=== PATIENT | male | born 1950 | race Caucasian/White ===

== ENCOUNTER 2016-10-31 05:29 | Observation (INO) | payer MEDICARE, BC ==
--- NOTE | ~2016-10-31 | CT4 ---
[facility] A Service of [facility] & [facility] RADIOLOGY TEXT RESULTS PATIENT: CARLOS BARNETT LOCATION: CED[facility] 34404-11 : [birth year] UNIT #: [id number] AGE: [address]: LULU MARIE MD SEX: M ORDER DR: [id number] [facility] [address] [place], [place] [address] [id number] I MR#: [id number] Acc #: [id number] NAME: CARLOS BARNETT. : 1950 SEX: M STUDY DATE/TIME: 10/31/2016 5:43 UNIT: CEDOF ROOM: 70502 STUDY DESCRIPTION: CT Abd and Pelv Wo Cont Attending Physician: Lulu Marie M.D. Ordering Physician: Santosh Barreto, [id number] Primary Care Physician: Damien Munguia.P.RTrangNTrang MEDICAL IMAGING REPORT This report is preliminary unless electronic signature is present EXAM CT abdomen and pelvis without contrast. 10/31/[address] dated 09/23/2016 HISTORY Low pelvic and penile pain since 0230 a.m. Dizziness and difficulty urinating. This CT exam was performed with one or more of the following radiation dose reduction techniques: automatic exposure control, adjustment of mA and/or kV according to patient size, and iterative reconstruction. FINDINGS Redemonstrated multiple nodules at both lung bases, not substantially changed since the prior exam. Abdomen: The gallbladder has been removed and unenhanced images of the liver are normal. The spleen and pancreas are unremarkable as well. There is slight prominence of the renal collecting systems and upper ureters bilaterally, but no calcification or adilene hydronephrosis. There is no bowel obstruction and the aorta is normal in caliber. There is no inflammatory change or mass. Pelvis: There is distention of the urinary bladder. There is no pelvic mass or adenopathy. There is diverticulosis but no evidence of diverticulitis. The appendix is not identified but there is no evidence to suggest appendicitis or any other acute inflammatory process. There is spinal degenerative change but no acute appearing bony abnormality. There is marked distention of the urinary bladder which rises [facility] A Service of [facility] & [facility] RADIOLOGY TEXT RESULTS PATIENT: CARLOS BARNETT LOCATION: [facility] [address]-62 : [birth year] UNIT #: [id number] AGE: [address]: LULU MARIE MD SEX: M ORDER DR: well out of the pelvis. IMPRESSION 1. Distended urinary bladder without stone or mass. 2. Diverticulosis without diverticulitis. 3. Spinal degenerative change without acute appearing bony abnormality. 4. Multiple metastatic nodules at the lung bases. 5. There is a soft tissue mass deep in the right gluteal fat about 2 cm in size. Etiology uncertain. It was probably present on the study of 09/20/2016 and only partially seen. Presumably this is related to metastatic disease or conceivably could represent an epidermal inclusion cyst. Dictated by... Mata Beyer M.D. THIS IS AN ELECTRONICALLY VERIFIED REPORT Mata Beyer M.D. at 10/31/2016 1:48 PM KRISTIN/dave TD: 10/31/2016 13:18 JOB #: [id number] MEDICAL IMAGING REPORT Page 1 of 1 COPY
--- NOTE | ~2016-10-31 | MR133 ---
[facility] A Service of [facility] & [facility] RADIOLOGY TEXT RESULTS PATIENT: CARLOS BARNETT LOCATION: [facility] 325-01 : 49 UNIT #: [id number] AGE: [address]: LULU MARIE MD SEX: M ORDER DR: [id number] [facility] [address] [place], [place] [address] [id number] I MR#: [id number] Acc #: [id number] NAME: CARLOS BARNETT : 1950 SEX: M STUDY DATE/TIME: 10/31/2016 17:29 UNIT: [address] ROOM: [facility] STUDY DESCRIPTION: MR MRA Neck WWo Contrast Attending Physician: Lulu Marie M.D. Ordering Physician: Maximino Mckenzie M.D. Primary Care Physician: Alex MunguiaRDevorah [facility] CENTER REPORT This report is preliminary unless electronic signature is present. EXAM MR angiogram of the neck with-without HISTORY Pain and dizziness, dizziness onset at 3 a.m., improved. COMMENT MR angiography neck vessels performed prior to and during the intravenous administration of 20 mL of MultiHance. There is no prior study of the neck vasculature. Aortic arch branch pattern shows bovine origin left common carotid artery. There is 0% stenosis at either carotid bifurcation by NASCET criteria. Both vertebral arteries are patent, fairly codominant and there is some mild tortuosity at the proximal left vertebral artery. IMPRESSION 1. By NASCET criteria, 0% stenosis at either carotid bifurcation. Both vertebral arteries patent, fairly codominant. STAT * RESULT Dictated by... Jessie Stout M.D. THIS IS AN ELECTRONICALLY VERIFIED REPORT Jessie Stout M.D. at 10/31/2016 7:34 PM SAC/psc TD: 10/31/2016 18:40 JOB #: [id number] [facility] A Service of [facility] & [facility] RADIOLOGY TEXT RESULTS PATIENT: CARLOS BARNETT LOCATION: [facility] 325-01 : [birth year] UNIT #: [id number] AGE: [address]: LULU MARIE MD SEX: M ORDER DR: MRI CENTER REPORT Page 1 of 1 COPY
--- NOTE | ~2016-10-31 | DS ---
Unit #: [id number] #: [id number] Patient: CARLOS BARNETT [id number] [address] [address] [id number] I MR#: [id number] NAME: CARLOS BARNETT. ROOM: 325 Age: 66 Sex: M Admission Date: 10/31/2016 : 1950 Discharge Date: 11/01/2016 Attending Physician: Nancie Hampton M.D. Primary Care Physician: Rebecca Liz A.P.R.N. DISCHARGE SUMMARY REASON FOR ADMISSION Dizziness. HISTORY OF PRESENT ILLNESS/HOSPITAL COURSE Please see H and P for complete details. Essentially, the patient was admitted and placed on telemetry floor. MRI/MRA was performed of the brain. Neurology consultation was obtained. Studies returned back to normal. There was no acute metastatic disease nor recent ischemic insult which was noted. CT of the abdomen and pelvis was performed secondary to mild abdominal discomfort as well as lower pelvic pressure, that study too was negative. CT head had been performed in the ER, which was unremarkable. Laboratory studies at time of discharge yield a hemoglobin of 14.1, white count 7.2. BMP is relatively unremarkable. The patient appears stable and improved. His dizziness has now resolved and he is cleared for discharge home. He will follow up with Rebecca Liz, nurse-practitioner, [facility] for ongoing management of his blood pressure. While he was here, his blood pressure remains elevated; however, he states while at home or even at his primary care physician's office, his blood pressure remained fairly stable. Therefore, no further adjustments will be made to his blood pressure regimen. FINAL DISCHARGE DIAGNOSES 1. Dizziness on admission likely secondary to inner ear/viral labyrinthitis. 2. Metastatic chondrosarcoma. 3. Hypertension. 4. Hypothyroidism. 5. Gastroesophageal reflux disease. 6. Gout. 7. Allergies. 8. Pulmonary embolism and deep venous thrombosis, on chronic anticoagulation. 9. Depression. 10. Obstructive sleep apnea. 11. Osteoarthritis. 12. History of amputation. FINAL DISCHARGE MEDICATIONS Coumadin 5 mg p.o. daily, note INR in this hospital admission 2.6; Lyrica 75 mg p.o. t.i.d.; meclizine 12.5 mg p.o. q.8 p.r.n. #10 prescription given; Tylenol 650 mg p.o. q.6 p.r.n.; Coreg CR 40 mg p.o. daily; Diovan Unit #: [id number] #: [id number] Patient: CARLOS BARNETT 10/320 one tablet p.o. daily; chlorthalidone 25 mg p.o. every other day; eye drops as directed; hydralazine 50 mg p.o. q.8; ferrous sulfate 324 mg p.o. daily; Zantac 150 mg p.o. b.i.d.; allopurinol 50 mg p.o. b.i.d.; colchicine 0.6 mg p.o. q.h.s.; multivitamin daily; Endocet 5/325 one tablet p.o. q.8 p.r.n.; Prevacid 15 mg p.o. daily; Xyzal 5 mg p.o. daily; Flexeril 10 mg p.o. q.h.s.; Synthroid 200 mcg p.o. daily. DISCHARGE CONDITION Stable. DISCHARGE DISPOSITION Home. FOLLOWUP Rebecca Liz [facility] in 7 to 10 days. Dictated by... Casi Lopez/sherri TD: 11/02/2016 02:40 JOB #: [id number] DISCHARGE SUMMARY Page 1 of 1 X Nancie Hampton MD X DISCHARGE SUMMARY
--- NOTE | ~2016-10-31 | CT71 ---
[facility] A Service of [facility] RADIOLOGY TEXT RESULTS PATIENT: CARLOS BARNETT LOCATION: [facility] 325-01 : [birth year] UNIT #: [id number] AGE: [address]: LULU MARIE MD SEX: M ORDER DR: [id number] [id number] [place], [place] [address] [id number] I MR#: [id number] Acc #: [id number] NAME: CARLOS BARNETT. : 1950 SEX: M STUDY DATE/TIME: 10/31/2016 7:50 UNIT: CEDOF ROOM: 11549 STUDY DESCRIPTION: CT Head Wo Contrast Attending Physician: Lulu Marie M.D. Ordering Physician: Santosh Alvarez M.D. Primary Care Physician: Damien Munguia.P.RTrangNTrang MEDICAL IMAGING REPORT This report is preliminary unless electronic signature is present EXAM CT of the head without contrast INDICATION Dizziness since this morning. TECHNIQUE Axial CT images were obtained from the vertex of the skull through the skull base. No intravenous contrast was administered. This CT exam was performed with one or more of the following radiation dose reduction techniques: automatic exposure control, adjustment of mA and/or kV according to patient size, and iterative reconstruction. FINDINGS No acute intracranial hemorrhage is identified. Patient does have some atrophy with some associated ventricular dilatation, although not significantly changed when compared to February 2008. There is no midline shift or mass effect. I do not see any focal areas of decreased attenuation. A mucous retention cyst is seen within the left maxillary sinus. There is some mild mucosal thickening seen within the right maxillary sinus. There are no focal soft tissue abnormalities. IMPRESSION No acute intracranial process is identified. Specifically, there is no evidence of acute hemorrhage, mass lesion or acute infarct. Patient does have some mild atrophy probably not significantly changed when compared to the February 2008 exam. Dictated by... Archana Zhong M.D. THIS IS AN ELECTRONICALLY VERIFIED REPORT [facility] A Service of [facility] RADIOLOGY TEXT RESULTS PATIENT: CARLOS BARNETT LOCATION: [facility] 325-01 : [birth year] UNIT #: [id number] AGE: [address]: LULU MARIE MD SEX: M ORDER DR: Archana Zhong M.D. at 10/31/2016 5:55 PM AFF/dorota TD: 10/31/2016 13:33 JOB #: [id number] MEDICAL IMAGING REPORT Page 1 of 1 COPY
--- NOTE | ~2016-10-31 | CO ---
Unit #: [id number] #: [id number] Patient: CARLOS BARNETT [id number] [facility] [address] [place], [place] [address] [id number] I MR#: [id number] NAME: CARLOS BARNETT. ROOM: 325 Age: 66 Sex: M Admission Date: 10/31/2016 : 1950 Attending Physician: Torey Marie M.D. Primary Care Physician: Rebecca Liz A.P.R.N. Consultation Date: 10/31/2016 CONSULTATION REPORT PRIMARY CARE PHYSICIAN Dr. Rebecca Liz. CONSULTING PHYSICIAN Dr. Torey Marie. REASON FOR CONSULT Dizziness, rule out BPPV. PATIENT IDENTIFICATION This is a 66-year-old right-handed male, evaluated in the ER room 10 at [facility]. SOURCE OF INFORMATION Obtained from the patient as well as the patient's at the bedside as well as medical record. HISTORY OF PRESENT ILLNESS This is a 66-year-old, right-handed, male with past medical history of chondrosarcoma with lung metastasis, pulmonary embolism about 3 years ago, on anticoagulation with therapeutic INR of 2.9, hypertension, GERD, hypothyroidism, who presented to [facility] with complaints of new-onset vertigo, and "fullness" in the abdomen. The patient states he was in his usual state of health yesterday. He was just recently discharged from this facility about a month ago for treatment of acute diverticulitis. He states that he stays fatigued, but has not had any acute problems in the last few days or new symptoms. He states he went to bed around 11:00 p.m. last night and woke up to go to the bathroom around 2:00 or 2:30. He states that whenever he tried to get up, he felt "very dizzy." He states that he felt as though he was spinning and that the room was spinning. He complains of associated nausea, but no vomiting. He states that his symptoms are so severe that he was unable to ambulate. Thus, his decided that he should come to the hospital for further evaluation. In the ER, he had a CT scan done that was negative for any acute intracranial abnormality. His glucose was 142. His troponin was less than 0.05. His CBC was unremarkable other than RDW of 18.6. His urinalysis was unremarkable and his PT and INR were 31.3 and 2.9 respectively. He was noted to have a low potassium of 2.6 and does have chronic hypokalemia. His chloride was 94. Otherwise, the remainder of his BMP with liver was unremarkable other than a mildly elevated glucose of 134. He states that the medicine he received in the ED significantly helped his symptoms. He received a dose of Zofran via EMS prior to arrival. In the ER, he received morphine 4 mg IV, Antivert 25 mg p.o., Decadron 10 mg IV, Klonopin 1 mg p.o., and another dose of Zofran 4 Unit #: [id number] #: [id number] Patient: CARLOS BARNETT E mg IV as well as a normal saline bolus and some potassium chloride 40 mEq p.o. The patient states he is feeling better, but states that he has not gotten up and has felt too unsteady. He states that lying still help his symptoms to be relieved. He denies any focal weakness or paresthesia, shortness of air, chest pain, speech or swallowing changes, or vision changes. He does complain of chronic lower extremity difficulty. He has bnoxq-zre-ycpd amputation of the right lower extremity and has ankle problems specifically pain in the left lower extremity. He states that he has to use a cane or walker many times to ambulate even with this prosthesis in place. He denies any shortness of air, palpitations, any recent fever or chills, change in weight or routine. Full detailed review of systems was done. PAST MEDICAL HISTORY 1. Chondrosarcoma diagnosed in 1998 followed by Oncology at [place] as well as Dr. Newby at [facility]. 2. Hypertension. 3. Hypothyroidism. 4. GERD. 5. Gout. 6. Allergies. 7. PE approximately 3 years ago. He is maintained on warfarin therapy. His INR is therapeutic on arrival. 8. Depression. 9. Obstructive sleep apnea, on CPAP. 10. Osteoarthritis. 11. Right iufuf-hrv-pddf amputation in 1998. He states was secondary to "cancer.". 12. Cholecystectomy. 13. Removal of T3 vertebrae secondary to cancer. 14. Multiple spine surgeries for removal of tumors. 15. Left shoulder tumor removal. ALLERGIES No known drug allergies. FAMILY HISTORY Family history of melanoma in his mother and myocardial infarction in his father. SOCIAL HISTORY He denies any history of tobacco use or illicit drug use and drinks alcohol only socially on occasion. REVIEW OF SYSTEMS 14-point review of systems was done and pertinent positives are as discussed above, otherwise negative. He does complain of fullness in his abdomen as described above that is being worked up by the admitting physician. HOME MEDICATIONS As per medication reconciliation form include Coreg CR, amlodipine/valsartan 10/320, Prevacid, Levoxyl, levocetirizine dihydrochloride, Lyrica, hydralazine, Flexeril, Zantac, chlorthalidone, warfarin, ferrous sulfate, Votrient, colchicine, allopurinol, mupirocin topically, oxycodone and acetaminophen, multivitamin, azelastine, clotrimazole and betamethasone cream topically for itching, Bactroban topically, iron and calcium tablets. Unit #: [id number] #: [id number] Patient: CARLOS BARNETT PHYSICAL EXAMINATION VITAL SIGNS: Temperature 98.3, he has been afebrile; pulse 90; respirations 20; blood pressure 149/100, blood pressure in the ER on arrival 164/115; oxygen saturation 95%; height 6 feet 3 inches; weight 249 pounds; BMI 31. NEUROLOGIC: He is awake, alert, and oriented to person, place, and time as well as events. No right or left confusion. No finger agnosia. No aphasia, dysarthria, or apraxia. Cranial nerve exam demonstrates full bingham of vision. Eyes are conjugate without ptosis or nystagmus. Extraocular movements are intact. No gaze palsy seen. Sensation of face and scalp is intact. Strength of muscles of facial expression is intact. Hearing is intact to conversation. Tongue is midline. Unable to visualize uvula and palate. Head turning and shoulder shrugs are unremarkable. Neck is supple. Motor exam, he demonstrates normal bulk and tone. Strength is equal 5/5 in the upper extremities. He has intact strength of the left lower extremity, but some pain in the knee and ankle limiting evaluation. He has a hsogm-rsn-jzfu amputation on the right lower extremities, thus limiting exam and proximally appears to be intact. Sensory exam intact to soft touch and pinprick. Gait and Romberg deferred. Reflexes, unable to elicit. Toes are equivocal on the left. Coordination, no past-pointing. No ataxia seen with Wilton-Hallpike and it appears to be negative on the right. On the left, he does complain of vertigo, but no nystagmus appreciated. DIAGNOSTIC STUDIES IMAGING STUDIES: Please see above. LABORATORY RESULTS: Please see above. IMPRESSION 1. Vertigo, significantly improved with medications received in the ED. Eugenio-Hallpike positive for vertigo on the left, but no nystagmus. We will ask PT/OT to evaluate. Nothing at this time to suggest an ischemic stroke. We will request an MRI of the brain given his history and risk factors and presentation request without and with gadolinium. 2. Nausea secondary to vertigo. 3. Hypokalemia. 4. Chondrosarcoma with lung metastasis. 5. History of pulmonary embolism in the remote past. He is maintained on warfarin with INR of 2.9 today on arrival. PLAN Please see orders. We will ask PT/OT to evaluate. He has improved with medications. We will continue low dose of meclizine t.i.d. and request an MRI of the brain, MRI of the head and neck. Further recommendations pending workup and further clinical course. The patient's ability to ambulate at his baseline after PT/OT evaluation. Please call for any questions or issues. Case was discussed with Dr. Mckenzie and he agrees with above. Dictated by... Kristin JulioPTrangRTrangN. for Casi Toribio/sherri TD: 11/01/2016 04:27 Unit #: [id number] #: [id number] Patient: CARLOS BARNETT JOB #: [id number] CONSULTATION REPORT Page 1 of 1 X Lacie Hunter APRN X CONSULTATION REPORT
--- NOTE | ~2016-10-31 | HP ---
Unit #: [id number] #: [id number] Patient: CARLOS BARNETT [id number] [address] [place], [place] [address] [id number] MR#: [id number] NAME: CARLOS BARNETT ROOM: Age: 66 Sex: M Admission Date: 10/31/2016 : 1950 Attending Physician: Santosh Alvarez M.D. Primary Care Physician: Rebecca Liz A.P.R.N. HISTORY AND PHYSICAL CHIEF COMPLAINT Dizziness. HISTORY OF PRESENT ILLNESS The patient is a 66-year-old male with an extensive past medical history including chondrosarcoma with mets to the lungs, presented to the emergency room complaining of dizziness that started earlier this morning. The patient stressed that his dizziness is spinning the room, when he tries to get up from lying position. The patient also complains of the nausea and vomiting associated with the dizziness. The patient also complained of fullness in the lower abdomen. The patient was recently discharged from the hospital a month ago with diverticulitis. The patient had a CT of the head and the abdomen with no acute findings. The patient was found to have a potassium of 2.6 and was found to have a (1) during the EMS transport. Denies any fever or chills, chest pain or palpitations. The patient follows with the [facility] every three months and the next schedule is on 11/13/2016. PAST MEDICAL HISTORY 1. History of chondrosarcoma diagnosed in 1998, followed by oncologist at [place], in addition to Dr. Newby at [facility]. 2. Hypertension. 3. Hypothyroidism. 4. Gastroesophageal reflux disease. 5. Gout. 6. Allergies. 7. History of PE approximately 3 years ago maintained on warfarin therapy. 8. Depression. 9. Obstructive sleep apnea on CPAP. 10. Osteoarthritis. PAST SURGICAL HISTORY 1. Status post right below the knee amputation. 2. Cholecystectomy. 3. Removal of T3 vertebra secondary to cancer. 4. Multiple spine surgeries for removal of tumors. 5. Multiple right leg and groin lymph node removal. 6. Removal of tumor from left shoulder. HOME MEDICATIONS Coreg, Exforge, Prevacid, levothyroxine, Colace, Xyzal, Lyrica, hydralazine, furosemide, Flexeril, loratadine, chlorthalidone, ferrous sulfate, Votrient, colchicine, allopurinol, mupirocin, clotrimazole, and Percocet. Unit #: [id number] #: [id number] Patient: CARLOS BARNETT ALLERGIES No known drug allergies. SOCIAL HISTORY The patient has never smoked and drinks alcohol only socially. FAMILY HISTORY Significant for melanoma in patient's mother in addition to diverticulosis and hypertension. REVIEW OF SYSTEMS Fourteen point review of systems was performed and only pertinent positive findings as described above. The remaining are negative. PHYSICAL EXAMINATION GENERAL: The patient is lying on the bed not in acute distress. VITALS: Temperature afebrile, pulse 90, respiratory rate 15, blood pressure 164/115, satting 98% at room air. HEENT: Head atraumatic, normocephalic. Pupils equal, round and reactive to light and accommodation. Extraocular movements are intact. Dry mucous membrane. NECK: Supple. No JVD. LUNGS: Clear to auscultation bilaterally. No rhonchi. No wheezing. HEART: Regular rate and rhythm. ABDOMEN: Soft. Positive bowel sounds. Discomfort at the lower abdomen. EXTREMITIES: No cyanosis and no clubbing, status post right below the knee amputation. NEUROLOGIC: Alert, awake and oriented. No gross focal motor deficit. Positive for dizziness. PSYCHIATRIC: Alert and awake. No suicidal or homicidal ideation. DIAGNOSTIC STUDIES LABORATORY DATA: Glucose 134, BUN 11, creatinine 0.8, sodium 136, potassium 2.6, chloride 94, bicarb 24, calcium 9.9, total protein 7.9, albumin 4.6, AST 38, ALT 35, alk phos 83. INR is 2.9. Troponin less than 0.05. WBC 7.5, hemoglobin 15.2, hematocrit 43.7, platelets 343 and UA is negative. IMAGING STUDIES: CT of the head is negative. CT of the abdomen and pelvis shows diverticulosis with diverticulitis and distended gallbladder. ASSESSMENT 1. Dizziness. 2. Rule out the benign BPPV. 3. Hypokalemia. 4. Nausea and vomiting. 5. Chondrosarcoma with mets to the lungs on oral chemotherapy. PLAN Plan to admit the patient to the observation to telemetry and continue with gentle IV fluids, normal saline 75 mL per hour for 10 hours. Replace the potassium per protocol and the patient had an EKG that showed a normal sinus rhythm at a rate of 98 BPM, QTC of 515 and LA interval of 200. Patient will have a neurology evaluation for dizziness to rule out BPPV and repeat the labs again in the morning and further recommendations will Unit #: [id number] #: [id number] Patient: CARLOS BARNETT follow as more lab results are available. Continue with the Zofran for the nausea and vomiting. Dictated by Casi Sierra/gina TD: 10/31/2016 12:25 JOB #: [id number] HISTORY AND PHYSICAL Page 1 of 1 X X HISTORY AND PHYSICAL
--- NOTE | ~2016-10-31 | EKG ---
PATIENT: CARLOS BARNETT UNIT #: [id number] Ventricular Rate: 88 BPM Atrial Rate: 88 BPM P-R Interval: 200 ms QRS Duration: 102 ms Q-T Interval: 426 ms QTC Calculation(Bezet): 515 ms P Beach: 72 degrees Calculated R Beach: -22 degrees Calculated T Beach: 7 degrees Diagnosis Line: Normal sinus rhythm Diagnosis Line: Nonspecific ST abnormality Diagnosis Line: Prolonged QT Diagnosis Line: Abnormal ECG Diagnosis Line: No previous ECGs available Diagnosis Line: Confirmed by MALIKA SEGOVIA MD ([id number]) on Diagnosis Line: 10/31/2016 2:27:40 PM INTERPRETING MD: JULIETTE GONZALEZ
--- NOTE | ~2016-10-31 | MR17 ---
[facility] A Service of [facility] & [facility] RADIOLOGY TEXT RESULTS PATIENT: CARLOS BARNETT LOCATION: [facility] 325- : [birth year] UNIT #: [id number] AGE: [address]: Nancie Hampton MD SEX: M ORDER DR: [id number] [facility] [address] [place], [place] [address] [id number] I MR#: [id number] Acc #: [id number] NAME: CARLOS BARNETT. : 1950 SEX: M STUDY DATE/TIME: 10/31/2016 17:29 [facility] ROOM: 325 STUDY DESCRIPTION: MR Brain WWo Contrast Attending Physician: Nancie Hampton M.D. Ordering Physician: Maximino Mckenzie M.D. Primary Care Physician: Rebecca Liz A.P.R.N. MRI CENTER REPORT This report is preliminary unless electronic signature is present. EXAM MRI brain with and without contrast HISTORY Vertigo, dizziness, onset 03:00 a.m. 10/31/2016 improved. History of bone cancer per patient not otherwise specified. COMMENT MRI of the brain was performed prior to and following the intravenous administration of 20 mL of MultiHance. There is a head CT from earlier today. There is no abnormally restricted diffusion. No recent ischemic insult is suspected. No Chiari-I malformation. Chronic malacic area at the superior medial right cerebellar hemisphere into the vermis consistent with an old insult. There is no extraaxial fluid collection. Mild generalized atrophy and prominence of perivascular spaces. Also mild white matter signal abnormality nonspecific probably due to small vessel disease. Major intracranial flow voids are maintained. Minimal fluid or inflammatory change mastoid tips. Mucous retention cyst or polyp in the left maxillary sinus. No MRI evidence for intracranial hemorrhage. No intracranial mass effect. Following contrast administration, there is no pathologic intracranial enhancement. No intracranial mass lesion. IMPRESSION 1. No evidence for a recent ischemic insult on the diffusion series. 2. There is a old malacic lesion to the superior medial right cerebellar hemisphere into the vermis. Etiology of this old insult not determined on this study. Please correlate further clinically. 3. Mild generalized atrophy and mild probable sequelae of small vessel disease. No intracranial mass effect. Dictated by... Jessie Stout M.D. [facility] A Service of [facility] RADIOLOGY TEXT RESULTS PATIENT: CARLOS BARNETT LOCATION: [place] [address] : [birth year] UNIT #: [id number] AGE: [address]: Nancie Hampton MD SEX: M ORDER DR: THIS IS AN ELECTRONICALLY VERIFIED REPORT Jessie Stout M.D. at 11/01/2016 10:20 AM JAMES/roseline TD: 11/01/2016 10:12 JOB #: [id number] MRI CENTER REPORT Page 1 of 1 COPY
--- NOTE | ~2016-10-31 | MR122 ---
[facility] A Service of [facility] & [facility] RADIOLOGY TEXT RESULTS PATIENT: CARLOS BARNETT LOCATION: [facility] 325-01 : [birth year] UNIT #: [id number] AGE: [address]: LULU MARIE MD SEX: M ORDER DR: [id number] [facility] [address] [place], [place] [address] [id number] I MR#: [id number] Acc #: [id number] NAME: CARLOS BARNETT : 1950 SEX: M STUDY DATE/TIME: 10/31/2016 17:29 UNIT: [address] ROOM: [facility] STUDY DESCRIPTION: MR MRA Head Wo Contrast Attending Physician: Lulu Marie M.D. Ordering Physician: Maximino Mckenzie M.D. Primary Care Physician: Damien Munguia.P.RDevorah MRI CENTER REPORT This report is preliminary unless electronic signature is present. EXAM MR angiogram [facility] vasculature. HISTORY Onset of dizziness at 3 a.m. on 10/31/2016, vertigo. COMMENT MR angiography [facility] vasculature performed without contrast. No prior study of the intracranial vessels. There is no intracranial vascular cutoff. No gross focal stenosis. A1, A2 vessels come in close proximity. I cannot tell if there is a tiny anterior communicator. Neither posterior communicator is seen. IMPRESSION No intracranial vascular cutoff. No focal central stenosis. STAT * RESULT Dictated by... Jessie Stout M.D. THIS IS AN ELECTRONICALLY VERIFIED REPORT Jessie Stout M.D. at 10/31/2016 7:34 PM SAC/psc TD: 10/31/2016 18:43 JOB #: [id number] MRI CENTER REPORT Page 1 of 1 COPY
[~2016-10-31 05:29] MED LIST: AMLODIPINE-VAL1 EAC3 PO; APAP325 MG PO; ASPIRIN PO; AZELASTINE HCL6 ML OU; B12 HEALTH1000 MCG/1 PO; BACTROBAN15 GM TOP; CHLORTHALIDONE 25 MG; CHLORTHALIDONE25 M1 PO; CLOTRIMAZOLE-BE45 GM TOP; COLCHICINE0.6 M1 PO; COREG CR40 M1 PO; COREG PO; COUMADIN5 MG PO; D3 + K2 DOTS 1,1 TAB PO; DULOXETINE HCL60 MG PO; ENDOCET 5-3251 EACH PO; ERYTHROMYCIN O3.5 GM OD; EXFORGE; FERRO-TIME325 MG PO; FLEXERIL10 MG PO; FLONASE16 GM; FLUOCINOLONE AC15 GM TOP; HYDRALAZINE HCL50 MG PO; KEFLEX500 M2 PO; LEVAQUIN750 MG PO; LEVOCETIRIZINE D5 MG PO; LEVOXYL200 MC1 PO; LORTAB 10/500 T1 TAB PO; LOVENOX SUBQ; LYRICA75 MG PO; MEDROL PO; METRONIDAZOLE PO; MOBIC PO; MULTI-VITAMIN1 EAC1 PO; MUPIROCIN15 GM TOP; OMNICEF PO; PREVACID PO; PREVACID15 M1 PO; REQUIP1 MG PO; SKELAXIN PO; SYNTHROID PO; THERA-M CAPLET1 EAC1 PO; VOTRIENT200 MG PO; VYTORIN 10/40 T1 TAB PO; ZANTAC150 M1 PO; ZOLOFT PO; ZYLOPRIM PO
[2016-10-31 06:06] LABS: POC - CKMB 1.9 ng/mL (0.0-7.9); POC - TROPONIN <0.05 ng/mL (<=0.05)
[2016-10-31 06:06] LABS: URINE SOURCE CLEAN CATCH
[2016-10-31 06:20] LABS: URINE APPEARANCE CLEAR; URINE BILIRUBIN NEG (NEG); URINE BLOOD NEG (NEG); URINE COLOR YELLOW; URINE GLUCOSE NEG (NEG); URINE KETONE NEG (NEG); URINE LEUKOCYTE ESTERASE NEG (NEG); URINE NITRATE NEG (NEG); URINE PROTEIN NEG (NEG); URINE SPECIFIC GRAVITY 1.008 (1.003-1.035); URINE UROBILINOGEN 0.2 MG/DL (NEG)
[2016-10-31 06:22] LABS: BASOPHIL% 0.7 % (0-2.5); EOSINOPHIL# 0.2 X10e3 (0-0.7); EOSINOPHIL% 2.8 % (0.0-7.0); HEMATOCRIT 43.7 % (38.0-50.0); HEMOGLOBIN 15.2 gm/dL (13.0-16.0); LYMPHOCYTE# 1.6 X10e3 (1.0-3.5); LYMPHOCYTE% 21.5 % (17.0-45.0); MEAN CELL VOLUME 89.7 FL (83-96); MEAN CORPUSCULAR HEMOGLOBIN 31.3 PG (28-34); MEAN CORPUSCULAR HGB CONC 34.9 g/dL (30-36); MEAN PLATELET VOLUME 7.3 FL (6.5-11.5); MONOCYTE# 0.4 X10e3 (0-1.0); MONOCYTE% 5.6 % (3.0-12.0); NEUTROPHIL# 5.2 X10e3 (1.5-7.1); NEUTROPHIL% 69.4 % (40-75); PLATELET COUNT 343 X10e3 (140-420); RED BLOOD COUNT 4.87 X10e (3.90-5.60); RED CELL DISTRIBUTION WIDTH 18.6 % (11.0-15.5); WHITE BLOOD COUNT 7.5 X10e3 (4.0-10.5)
[2016-10-31 06:25] LABS: DIFF IND NO
[2016-10-31 06:27] LABS: CULTURE INDICATED? NO
[2016-10-31 06:36] LABS: INR 2.9; PARTIAL THROMBOPLASTIN TIME 46.4 SECONDS (23.5-31.3); PROTHROMBIN TIME (PATIENT) 31.3 SECONDS (9.6-11.5)
[2016-10-31 07:01] LABS: ALBUMIN SERUM 4.6 g/dL (3.5-5.0); ALKALINE PHOSPHATASE 83 U/L (32-92); ALT (SGPT) 35 U/L (10-40); AST (SGOT) 38 U/L (10-42); BILIRUBIN, DIRECT 0.1 mg/dL (0.0-0.2); BILIRUBIN,INDIRECT 0.6 mg/dL (0.0-0.9); BILIRUBIN,TOTAL 0.7 mg/dL (0.2-2.0); BLOOD UREA NITROGEN 11 mg/dL (9-23); BUN/CREATININE RATIO 13.75; CALCIUM SERUM 9.9 mg/dL (8.4-10.2); CARBON DIOXIDE 24 mmol/L (22-31); CHLORIDE 94 mmol/L (100-111); CREATININE SERUM 0.8 mg/dL (0.6-1.4); GLOM FILT RATE Estimated ABOVE60 mL/min (>60); GLUCOSE FASTING 134 mg/dL (70-110); PROTEIN TOTAL SERUM 7.9 g/dL (6.0-8.3); SODIUM 136 mmol/L (135-145)
[2016-10-31 07:03] LABS: POTASSIUM 2.6 mmol/L (3.5-5.1)
[2016-10-31] MEDS ORDERED: LYRICA75 MG PO (12:39)
[2016-11-01 07:33] LABS: HEMATOCRIT 41.6 % (38.0-50.0); HEMOGLOBIN 14.1 gm/dL (13.0-16.0); MEAN CELL VOLUME 92.4 FL (83-96); MEAN CORPUSCULAR HEMOGLOBIN 31.3 PG (28-34); MEAN CORPUSCULAR HGB CONC 33.9 g/dL (30-36); MEAN PLATELET VOLUME 7.1 FL (6.5-11.5); RED BLOOD COUNT 4.51 X10e (3.90-5.60); RED CELL DISTRIBUTION WIDTH 18.8 % (11.0-15.5); WHITE BLOOD COUNT 7.2 X10e3 (4.0-10.5)
[2016-11-01 08:09] LABS: BLOOD UREA NITROGEN 10 mg/dL (9-23); BUN/CREATININE RATIO 14.28; CALCIUM SERUM 9.4 mg/dL (8.4-10.2); CARBON DIOXIDE 28 mmol/L (22-31); CHLORIDE 96 mmol/L (100-111); CREATININE SERUM 0.7 mg/dL (0.6-1.4); GLOM FILT RATE Estimated ABOVE60 mL/min (>60); GLUCOSE FASTING 112 mg/dL (70-110); POTASSIUM 3.5 mmol/L (3.5-5.1); SODIUM 134 mmol/L (135-145)
[2016-11-01] MEDS ORDERED: ACETAMINOPHEN650 M4 PO (12:15)
[2016-11-01] MEDS ORDERED: MECLIZINE HCL12.5 M2 PO (12:16)
== END 2016-11-01 15:45 | disposition home or self-care (01) ==
LOC: CED 05:29 → CEDOF 11:57 → C3A PCU 15:27
PROVIDERS: Emergency Medicine; Internal Medicine
DX: R42 Dizziness and giddiness (principal); C41.9 Malignant neoplasm of bone and articular cartilage, unspecified; C78.00 Secondary malignant neoplasm of unspecified lung; E87.6 Hypokalemia; R11.2 Nausea with vomiting, unspecified; I10 Essential (primary) hypertension; K21.9 Gastro-esophageal reflux disease without esophagitis; G47.33 Obstructive sleep apnea (adult) (pediatric); M19.90 Unspecified osteoarthritis, unspecified site; I26.99 Other pulmonary embolism without acute cor pulmonale; Z79.01 Long term (current) use of anticoagulants; K57.90 Diverticulosis of intestine, part unspecified, without perforation or abscess without bleeding; M10.9 Gout, unspecified; F32.9 Major depressive disorder, single episode, unspecified; Z80.8 Family history of malignant neoplasm of other organs or systems; Z82.49 Family history of ischemic heart disease and other diseases of the circulatory system; Z83.79 Family history of other diseases of the digestive system; Z89.511 Acquired absence of right leg below knee
CPT/HCPCS: 36415; 70450; 70544; 70549; 70553; 74176; 80048; 80076; 81003; 82553; 82947; 84484; 85025; 85027; 85610; 85730; 93005; 94760; 96361; 96374; 96375; 97163; 97165; 97530; 99285; A9577; G0378; G8978-GP; G8979-GP; G8980-GP; G8987-GO; G8988-GO; G8989-GO; J1100; J2270; J2405

== ENCOUNTER 2016-12-29 13:22 | Emergency (ER) | payer MEDICARE, BC ==
--- NOTE | ~2016-12-29 | CT2 ---
[facility] A Service of [facility] RADIOLOGY TEXT RESULTS PATIENT: CARLOS BARNETT LOCATION: [facility] : 48 UNIT #: [id number] AGE: [address]: Santosh Barreto MD SEX: M ORDER DR: [id number] [facility] [address] [place], [place] [address] [id number] MR#: [id number] Acc #: [id number] NAME: CARLOS BARNETT. : 1950 SEX: M STUDY DATE/TIME: 12/29/2016 18:08 UNIT: [facility] ROOM: STUDY DESCRIPTION: CT Abd and Pelv W Cont Attending Physician: Markus Barreto M.D. Ordering Physician: Ed Doctor [id number] [facility] Primary Care Physician: Rebecca Liz A.P.R.N. MEDICAL IMAGING REPORT This report is preliminary unless electronic signature is present EXAM Abdomen and pelvis CT with contrast 12/29/16 INDICATIONS Abdominal pain, constipation for a day. Status post cholecystectomy. History of bone malignancies status post chemotherapy and radiation therapy. Anemia. TECHNIQUE Contrast enhanced CT abdomen and pelvis was performed. Comparison 10/31/2016. This CT exam was performed with one or more of the following radiation dose reduction techniques: automatic exposure control, adjustment of mA and/or kV according to patient size, and iterative reconstruction. FINDINGS CT abdomen: Included lung bases demonstrate no effusion. There are multiple noncalcified pulmonary nodules in both lower lobes most characteristic of metastatic disease until proven otherwise. The largest in the right lower lobe measures 2.8 cm long axis previously 2.4 cm. The largest in the left lung base appears to be collision lesion between 2 nodules that measure up to 3.2 cm long axis previously 3.5 cm. Overall conspicuity and number of nodules is similar to the prior study. At least 1 nodule on the left does appear to have enlarged, now measuring up to 1 cm previously about 6 mm. No pericardial effusion. Aorta demonstrates atherosclerotic change and tortuosity but there is no aneurysm or dissection. Spleen and adrenal glands are unremarkable. The pancreas is normal. Gallbladder surgically absent. There is fatty infiltration of the liver. STS. [facility] A Service of [facility] RADIOLOGY TEXT RESULTS PATIENT: CARLOS BARNETT LOCATION: [facility] : 48 UNIT #: [id number] AGE: [address]: Santosh Barreto MD SEX: M ORDER DR: Kidneys demonstrate a small cyst but are otherwise unremarkable. CT pelvis: Bladder and prostate within normal limits. Tiny inguinal hernias bilaterally that contain fat only. No drainable fluid collection in the pelvis. There is a small amount of free fluid in the pelvis secondary to acute diverticulitis of the proximal sigmoid colon. This involves approximately 5-6 cm of the sigmoid colon. No distinct free air or bowel obstruction. No associated abscess. The more proximal colon is unremarkable. Appendix not identified and may be surgically absent. Osseous structures demonstrate degenerative change in the lumbar spine. No new compression fracture or new suspicious bone lesion. There is redemonstration of a soft tissue mass in the deep gluteal fat on the right about 2.5 cm deep to the gluteal crease. It previously measured about 2.5 cm. This may represent metastatic disease as well or an epidermal inclusion cyst or sebaceous cyst. IMPRESSION 1. Acute diverticulitis of the sigmoid colon. There is a small amount of free fluid tracking into the pelvis but there is no drainable fluid collection, free air or bowel obstruction at this time. This involves about 5-6 cm of the sigmoid colon. 2. Metastatic disease in the lung bases stable to slightly progressed compared to the prior study. See reference measurements above. 3. Fatty infiltration of the liver. 4. Redemonstration of a soft tissue mass in the deep gluteal fat on the right. This may represent metastatic disease or an epidermal inclusion cyst or sebaceous cyst. It is stable to smaller than on the prior study. Degenerative change of the lumbar spine. No new evidence of compression fracture or malalignment. Dictated by... Zeb Hamilton M.D. THIS IS AN ELECTRONICALLY VERIFIED REPORT Zeb Hamilton M.D. at 12/30/2016 4:13 PM Mary TD: 12/29/2016 22:36 JOB #: [id number] MEDICAL IMAGING REPORT Page 1 of 1 COPY
[~2016-12-29 13:22] MED LIST changes: +ACETAMINOPHEN650 M4 PO; +MECLIZINE HCL12.5 M2 PO
[2016-12-29 15:23] LABS: BASOPHIL# 0.1 X10e3 (0-0.3); BASOPHIL% 0.5 % (0-2.5); EOSINOPHIL# 0.5 X10e3 (0-0.7); EOSINOPHIL% 4.8 % (0.0-7.0); HEMOGLOBIN 15.7 gm/dL (13.0-16.0); LYMPHOCYTE# 1.3 X10e3 (1.0-3.5); LYMPHOCYTE% 11.7 % (17.0-45.0); MEAN CELL VOLUME 96.3 FL (83-96); MEAN CORPUSCULAR HEMOGLOBIN 32.2 PG (28-34); MEAN CORPUSCULAR HGB CONC 33.4 g/dL (30-36); MEAN PLATELET VOLUME 7.3 FL (6.5-11.5); MONOCYTE% 8.7 % (3.0-12.0); NEUTROPHIL# 8.2 X10e3 (1.5-7.1); NEUTROPHIL% 74.3 % (40-75); PLATELET COUNT 301 X10e3 (140-420); RED BLOOD COUNT 4.88 X10e (3.90-5.60); RED CELL DISTRIBUTION WIDTH 15.7 % (11.0-15.5)
[2016-12-29 15:25] LABS: DIFF IND NO
[2016-12-29 15:46] LABS: ALBUMIN SERUM 4.4 g/dL (3.5-5.0); BILIRUBIN, DIRECT 0.2 mg/dL (0.0-0.2); BILIRUBIN,INDIRECT 0.9 mg/dL (0.0-0.9); BILIRUBIN,TOTAL 1.1 mg/dL (0.2-2.0); BUN/CREATININE RATIO 11.81; CALCIUM SERUM 9.4 mg/dL (8.4-10.2); CREATININE SERUM 1.1 mg/dL (0.6-1.4); GLOM FILT RATE Estimated 69.1 mL/min (>60); POTASSIUM 3.9 mmol/L (3.5-5.1); PROTEIN TOTAL SERUM 7.7 g/dL (6.0-8.3)
[2016-12-29] MEDS ORDERED: EXFORGE 10-3201 EACH PO (17:27)
[2016-12-29] MEDS ORDERED: COREG PO (17:27)
[2016-12-29] MEDS ORDERED: PRILOSEC PO (17:28)
[2016-12-29] MEDS ORDERED: PREVACID15 M1 PO (17:28)
[2016-12-29] MEDS ORDERED: SYNTHROID PO (17:29)
[2016-12-29] MEDS ORDERED: PATIENT'S PHARMACY (17:29)
[2016-12-29] MEDS ORDERED: XYZAL5 MG PO (17:30)
[2016-12-29] MEDS ORDERED: DULOXETINE HCL60 M1 PO (17:30)
[2016-12-29] MEDS ORDERED: HYDRALAZINE HCL50 MG PO (17:30)
[2016-12-29] MEDS ORDERED: LYRICA75 MG PO (17:30)
[2016-12-29] MEDS ORDERED: FLEXERIL10 MG PO (17:30)
[2016-12-29] MEDS ORDERED: TALADINE150 MG PO (17:31)
[2016-12-29] MEDS ORDERED: CHLORTHALIDONE25 MG PO (17:31)
[2016-12-29] MEDS ORDERED: COUMADIN5 MG PO (17:31)
[2016-12-29] MEDS ORDERED: FERRO-TIME325 MG PO (17:31)
[2016-12-29] MEDS ORDERED: VOTRIENT200 MG PO (17:32)
[2016-12-29] MEDS ORDERED: COLCHICINE0.6 M1 PO (17:32)
[2016-12-29] MEDS ORDERED: ZYLOPRIM100 MG PO (17:32)
[2016-12-29] MEDS ORDERED: MECLIZINE HCL12.5 M2 PO (17:33)
[2016-12-29] MEDS ORDERED: KCL PO (17:33)
[2016-12-29] MEDS ORDERED: CLOTRIMAZOLE/BE15 G1 TOP (17:34)
[2016-12-29] MEDS ORDERED: OPTIVAR OPHTHA1 DROP (17:34)
[2016-12-29] MEDS ORDERED: MUPIROCIN0.9 GM TOP (17:34)
[2016-12-29] MEDS ORDERED: PERCOCET10 PO (17:35)
[2016-12-29] MEDS ORDERED: TURMERIC COMPL1 EACH PO (17:35)
[2016-12-29] MEDS ORDERED: MULTIVITAMINS1 EAC3 PO (17:35)
[2016-12-29] MEDS ORDERED: VITAMIN B122500 MC1 PO (17:35)
[2016-12-29] MEDS ORDERED: VITAMIN D31000 UNIT PO (17:35)
[2016-12-29] MEDS ORDERED: GIN-ZING100 MG PO (17:36)
== END 2016-12-29 19:09 | disposition home or self-care (01) ==
LOC: CED 13:22
DX: K57.32 Diverticulitis of large intestine without perforation or abscess without bleeding (principal); I10 Essential (primary) hypertension; Z79.899 Other long term (current) drug therapy
CPT/HCPCS: 36415; 74177; 80048; 80076; 83690; 85025; 99284; J2270; J2405; Q9967

== ENCOUNTER → 2017-01-03 | Outpatient (CLI) | payer MEDICARE, BC ==
[~2017-01-03] MED LIST changes: +CHLORTHALIDONE25 MG PO; +CLOTRIMAZOLE/BE15 G1 TOP; +DULOXETINE HCL60 M1 PO; +EXFORGE 10-3201 EACH PO; +GIN-ZING100 MG PO; +KCL PO; +MULTIVITAMINS1 EAC3 PO; +MUPIROCIN0.9 GM TOP; +OPTIVAR OPHTHA1 DROP; +PATIENT'S PHARMACY; +PERCOCET10 PO; +PRILOSEC PO; +TALADINE150 MG PO; +TURMERIC COMPL1 EACH PO; +VITAMIN B122500 MC1 PO; +VITAMIN D31000 UNIT PO; +XYZAL5 MG PO; +ZYLOPRIM100 MG PO
[2017-01-03 17:07] LABS: BASOPHIL% 0.4 % (0-2.5); DIFF IND NO; EOSINOPHIL# 0.3 X10e3 (0-0.7); EOSINOPHIL% 4.2 % (0.0-7.0); HEMATOCRIT 42.8 % (38.0-50.0); HEMOGLOBIN 14.2 gm/dL (13.0-16.0); LYMPHOCYTE# 1.2 X10e3 (1.0-3.5); LYMPHOCYTE% 18.8 % (17.0-45.0); MEAN CELL VOLUME 96.4 FL (83-96); MEAN CORPUSCULAR HGB CONC 33.2 g/dL (30-36); MEAN PLATELET VOLUME 7.1 FL (6.5-11.5); MONOCYTE# 0.6 X10e3 (0-1.0); MONOCYTE% 10.5 % (3.0-12.0); NEUTROPHIL# 4.1 X10e3 (1.5-7.1); NEUTROPHIL% 66.1 % (40-75); PLATELET COUNT 375 X10e3 (140-420); RED BLOOD COUNT 4.44 X10e (3.90-5.60); WHITE BLOOD COUNT 6.2 X10e3 (4.0-10.5)
[2017-01-03 17:10] LABS: ALBUMIN SERUM 4.2 g/dL (3.5-5.0); BILIRUBIN,TOTAL 0.6 mg/dL (0.2-2.0); BUN/CREATININE RATIO 12.5; CALCIUM SERUM 9.6 mg/dL (8.4-10.2); CREATININE SERUM 1.2 mg/dL (0.6-1.4); GLOM FILT RATE Estimated 62.2 mL/min (>60); POTASSIUM 4.2 mmol/L (3.5-5.1); PROTEIN TOTAL SERUM 7.8 g/dL (6.0-8.3)
[2017-01-03 17:15] LABS: INR 3.4; PROTHROMBIN TIME (PATIENT) 37.8 SECONDS (9.6-11.5)
== END | disposition home or self-care (01) ==
LOC: CLAB 16:22
PROVIDERS: Nurse Practitioner
DX: D50.9 Iron deficiency anemia, unspecified (principal); K92.1 Melena
CPT/HCPCS: 36415; 80053; 85025; 85610